=== PATIENT | male | born 1955 | race Caucasian/White ===

== ENCOUNTER → 2023-07-24 | Outpatient (REF) | payer MEDICARE, OTHER | LOC: M SFHCRHEU 09:09 | PROVIDERS: ATTEND Internal Medicine Rheumatology | DX: M19.90 Unspecified osteoarthritis, unspecified site (principal); R21 Rash and other nonspecific skin eruption; R53.83 Other fatigue; R63.0 Anorexia; S91.109A Unspecified open wound of unspecified toe(s) without damage to nail, initial encounter ==

== ENCOUNTER → 2023-09-03 | Outpatient (REF) | payer MEDICARE, OTHER | LOC: M SFHCRHEU 13:59 | PROVIDERS: ATTEND Internal Medicine Rheumatology | DX: M19.90 Unspecified osteoarthritis, unspecified site (principal); R21 Rash and other nonspecific skin eruption; R53.83 Other fatigue; R63.0 Anorexia; S91.109A Unspecified open wound of unspecified toe(s) without damage to nail, initial encounter ==

== ENCOUNTER → 2024-10-19 | Outpatient (REF) | payer MEDICARE, OTHER | LOC: M SFHCRHEU 09:23 | PROVIDERS: ATTEND Internal Medicine Rheumatology | DX: M19.90 Unspecified osteoarthritis, unspecified site (principal); R21 Rash and other nonspecific skin eruption; R53.83 Other fatigue; R63.0 Anorexia ==